=== PATIENT | male | born 1975 | race African-American/Black ===

== ENCOUNTER → 2018-10-10 | Outpatient (CLI) | payer OTHER ==
--- NOTE | 2018-10-10 15:52 | KCIC ---
Two-view chest dated 10/10/2018. No comparison available. Clinical data indication: Productive cough. FINDINGS: PA and lateral views obtained. Heart and mediastinal contours within normal limits. Lungs are clear without focal consolidation. Vascular interstitium within normal limits. No pleural effusion or pneumothorax. IMPRESSION: No acute radiographic abnormality. Electronically signed by: Bruno Boyd MD (10/10/2018 3:49 PM) [id number]
== END | disposition home or self-care (01) ==
LOC: KCIC 15:21
PROVIDERS: ATTEND Family Medicine
DX: J20.9 Acute bronchitis, unspecified (principal)
CPT/HCPCS: 71046